=== PATIENT | male | born 1975 | race African-American/Black ===

== ENCOUNTER 2019-11-24 16:14 | Outpatient (CLI) | payer OTHER, SELFPAY ==
--- NOTE | ~2019-11-24 | XR_ITS ---
EXAMINATION: XR chest 2V DATE: 11/24/2019 16:43 INDICATION: Congestive heart failure TECHNIQUE: PA and lateral views of the chest are obtained. COMPARISON: 08/03/2017 FINDINGS: The lungs are free of acute opacities. There is no pleural effusion or pneumothorax. Cardio megaly is noted. The visualized bones and soft tissues are unremarkable. IMPRESSION: 1. Cardiomegaly Reviewed, dictated and finalized at location A. IMPRESSION: 1. Cardiomegaly
--- NOTE | ~2019-11-24 | CT_ITS ---
EXAMINATION: CT abdomen pelvis wo con DATE: 11/24/2019 17:06 INDICATION: Abdominal distention TECHNIQUE: Computed tomography (CT) of the abdomen and pelvis was performed without intravenous contr ast. The dose-length product (DLP) was 1081.49 mGy-cm. Automated exposure control and iterative recon struction technique were employed. COMPARISON: None FINDINGS: Cardiomegaly is noted. There is mild atelectasis of the visualized lung bases. There is a m oderate volume of ascites. Diffuse anasarca is noted. Within the limitations of noncontrast examinati on, the liver, spleen, pancreas, gallbladder, and adrenal glands are normal. The kidneys are unremark able. There is no free intraperitoneal gas or evidence of bowel obstruction. Mild right inguinal lymp hadenopathy is noted. IMPRESSION: 1. Moderate volume of ascites and diffuse anasarca. 2. Mild right inguinal lymphadenopathy, likely reactive. 3. Cardiomegaly. Reviewed, dictated and finalized at location A.
== END 2019-11-24 16:15 | disposition home or self-care (01) ==
DX: R14.0 Abdominal distension (gaseous) (principal); I50.9 Heart failure, unspecified; I51.7 Cardiomegaly
CPT/HCPCS: 71046; 74176

== ENCOUNTER 2019-12-08 10:25 | Outpatient (CLI) | payer OTHER, SELFPAY ==
--- NOTE | ~2019-12-08 | US_ITS ---
EXAMINATION: US venous doppler [facility] DATE: 12/08/2019 11:16 INDICATION: Bilateral lower limb swelling TECHNIQUE: [place]ona scale images without and with compression and Doppler images of the bilateral lower e xtremity veins were obtained. COMPARISON: 11/06/2017 FINDINGS: The right common femoral vein, profunda femoral vein, femoral vein, popliteal vein, peroneal trunk, p osterior tibial veins, and greater saphenous vein are patent. The left common femoral vein, profunda femoral vein, femoral vein, popliteal vein, peroneal trunk, po sterior tibial veins, and greater saphenous vein are patent. IMPRESSION: 1. Patent bilateral lower extremity veins. No evidence of deep venous thrombosis. Reviewed, dictated and finalized at location A. IMPRESSION: 1. Patent bilateral lower extremity veins. No evidence of deep venous thrombosi s.
== END 2019-12-08 10:26 | disposition home or self-care (01) ==
PROVIDERS: PCP Internal Medicine; Visit Provider Internal Medicine
DX: R60.0 Localized edema (principal)
CPT/HCPCS: 93970

== ENCOUNTER 2024-01-25 14:58 | Observation (INO) | payer OTHER, SELFPAY ==
[2024-01-25] VITALS (11 sets, daily range): BP systolic 151–183; BP diastolic 110–140; PULSE 92–98; RESP 16–21; TEMP 36.3–36.7; O2SAT 95–100; BMI 28.8
--- NOTE | ~2024-01-25 | XR_ITS ---
EXAMINATION: XR chest 2V Exam Date/Time: 01/25/2024 16:58 CDT HISTORY: SOB Comparison: 11/24/2019. RESULT: Lines, tubes, and devices: None. Lungs and pleura: Clear. Cardiomediastinal silhouette: Stable cardiomegaly. Other: No acute osseous or upper abdominal finding. IMPRESSION: No acute cardiopulmonary process. Reviewed, dictated and finalized at location K.
--- NOTE | ~2024-01-25 | CT_ITS ---
EXAMINATION: CT abdomen pelvis w con DATE: 01/25/2024 17:11 INDICATION: right sided abdominal pain TECHNIQUE: Computed tomography (CT) of the abdomen and pelvis was performed with 100 mL Omnipaque-350 intravenous contrast. Automated exposure control and iterative reconstruction technique were employe d. The dose-length product was 435.03 mGy-cm. COMPARISON: 11/24/2019. FINDINGS: Although timed for a portal venous scan, the study remains in the arterial phase likely due to poor c ardiac output. Lower thorax: Cardiomegaly. Small right pleural effusion. Minimal dependent scar/atelectasis. Liver: Enlarged. Fatty infiltrated. Biliary/Gallbladder: Gallbladder wall thickening. No bile duct dilation. Pancreas: No mass or duct dilation. Spleen: Normal. Adrenals:No mass. Kidneys: No suspicious mass, obstructing stone, or hydronephrosis. GI tract: No small or large bowel dilation. Normal appendix. Mesentery/Peritoneum: No ascites, mass, or free air. Diffuse mesenteric edema. Mild perihepatic and p erisplenic fluid. Retroperitoneum: No mass. Pelvis: Urinary bladder wall thickening and adjacent stranding. Soft Tissues: Moderate bilateral inguinal lymphadenopathy. Diffuse body wall edema. Bones: No acute osseous finding. IMPRESSION: Cardiomegaly with decreased cardiac output. Small right pleural effusion. Hepatomegaly with steatosis. Nonspecific gallbladder wall thickening, probably secondary to generalized edema, correlate with bili lindsey labs and symptoms of right upper quadrant pain. Moderate diffuse subcutaneous and mesenteric edema. Small volume ascites. Urinary bladder wall thickening, probably secondary to generalized edema, correlate with urinalysis. Bilateral inguinal lymphadenopathy. Reviewed, dictated and finalized at location K. IMPRESSION: Cardiomegaly with decreased cardiac output. Small right pleural effusion. Hepatomegaly with steatosis. Nonspecific gallbladder wall thickening, probably secondary to generalized mata a, correlate with biliary labs and symptoms of right upper quadrant pain. Moderate diffuse subcutaneous and mesenteric edema. Small volume ascites. Urinary bladder wall thickening, probably secondary to generalized edema, corre late with urinalysis. Bilateral inguinal lymphadenopathy.
--- NOTE | ~2024-01-25 | US_ITS ---
EXAMINATION: US renal BI DATE: 01/25/2024 20:17 INDICATION: Renal failure, proteinuria TECHNIQUE: Multiple grayscale and Doppler ultrasound images of the kidneys were obtained. COMPARISON: CT abdomen pelvis, same date. FINDINGS: The right kidney measures 11.0 x 5.5 x 5.8 cm. The left kidney measures 11.3 x 5.0 x 5.0 cm. The kidn eys demonstrate bilateral cortical thinning with normal parenchymal echogenicity. Small volume ascite s. There is no hydronephrosis. The bladder is normal. IMPRESSION: Bilateral renal cortical thinning, otherwise unremarkable renal sonogram findings. Mild ascites. Reviewed, dictated and finalized at location K. IMPRESSION: Bilateral renal cortical thinning, otherwise unremarkable renal sonogram findin gs. Mild ascites.
--- NOTE | ~2024-01-25 | US_ITS ---
EXAMINATION: US venous doppler [facility] DATE: 01/25/2024 20:17 INDICATION: Bilateral lower extremity edema . TECHNIQUE: Grayscale images without and with compression and Doppler images of the bilateral lower ex tremity veins were obtained. COMPARISON: 12/08/2019 FINDINGS: The right common femoral vein, profunda (deep) femoral vein, femoral vein, popliteal vein, peroneal v ein, posterior tibial veins, and greater saphenous vein are patent. The left common femoral vein, profunda (deep) femoral vein, femoral vein, popliteal vein, peroneal v ein, posterior tibial veins, and greater saphenous vein are patent. IMPRESSION: Patent bilateral lower extremity veins. No evidence of deep venous thrombosis. Reviewed, dictated and finalized at location K.
--- NOTE | 2024-01-25 15:56 | ECG_ITS ---
Test Date: 2024-01-25 16:33:36 Measurements Intervals [place] Rate: 94 P: 64 ME: 180 QRS: -35 QRSD: 108 T: 79 QT: 378 QTc: 475 Interpretive Statements SINUS RHYTHM LEFT AXIS DEVIATION INCOMPLETE LEFT BUNDLE BRANCH BLOCK CONSIDER INFERIOR INFARCT, AGE INDETERMINATE BORDERLINE ST-T WAVE ABNORMALITY- HIGH LATERAL LEADS BASELINE ARTIFACT- I, II, AVR ABNORMAL ECG No previous ECG available for comparison Electronically Signed On 01-26-2024 07:18:54 CDT by Tomas Hawley D.O.
[2024-01-25 16:27] LABS: Basophils Absolute Auto 0.1 K/mm3 (0.0-0.1); Eosinophils Absolute Auto 0.1 K/mm3 (0-0.3); Eosinophils Percent Auto 0.7 % (0-4.4); Hematocrit 48.6 % (42.0-52.0); Hemoglobin 16.3 g/dL (14.0-18.0); Immature Granulocyte Absolute 0.01 K/mm3 (0.00-0.031); Immature Granulocyte Percent A 0.1 % (0-0.5); Lymphocytes Absolute Auto 1.49 K/mm3 (0.9-3.2); Lymphocytes Percent Auto 21.3 % (18.3-44.2); Mean Corpuscular HGB Conc 33.5 g/dl (32-36); Mean Corpuscular Hemoglobin 31.7 pg (26-34); Mean Corpuscular Volume 94.4 fl (80-100); Monocytes Absolute Auto 0.7 K/mm3 (0.1-0.6); Monocytes Percent Auto 10.6 % (2.6-8.5); Neutrophils Absolute Auto 4.7 K/mm3 (1.3-6.7); Neutrophils Percent Auto 66.3 % (45.5-73.1); Platelet Count Result 234 k/mm3 (150-375); Red Blood Count 5.15 M/mm3 (4.6-6.20); Red Cell Distribution Width 14.6 % (11.5-14.5)
[2024-01-25 16:40] LABS: Alanine Aminotransferase 13 U/L (6-50); Albumin Level 3.8 g/dL (3.5-5.1); Alkaline Phosphatase 177 U/L (38-126); Anion Gap 13 mmol/L (4-12); Aspartate Amino Transferase 31 U/L (17-59); Bilirubin,Total 3.1 mg/dL (0.2-1.3); Blood Urea Nitrogen 27 mg/dL (9-20); Carbon Dioxide 20 mmol/L (22-30); Chloride 99 mmol/L (98-107); Estimated CRCL calculation 57 ml/min; Estimated Glomerular Filt Rate > 60; Glucose 248 mg/dL (65-110); Potassium 4.4 mmol/L (3.4-5.0); Sodium 132 mmol/L (137-145)
[2024-01-25 16:47] LABS: NT Pro B Type Natriuretic Pept 20500 pg/mL (19.9-100)
--- NOTE | 2024-01-25 17:08 | ED.SOB ---
HPI - SOB/Dyspnea General Chief Complaint: Abdominal Pain Stated Complaint: bilateral leg swelling, SOB Time Seen by Provider: 01/25/24 15:56 Source: patient Mode of arrival: ambulatory Limitations: no limitations History of Present Illness HPI Narrative: This is a 48 year old male that presents to the ER for edema. Worsening over the last couple of weeks. Reports shortness of breath, abdominal swelling, lower extremity edema. Reports he does not feel like his Lasix and Spironolactone are helping. Reports a cough. Reports right sided abdominal pain. Reports a 30 lb weight gain in the last couple of weeks. Denies fever, vomiting, diarrhea, or dysuria. Related Data Allergies Allergy/AdvReac Type Severity Reaction Status Date / Time No Known Allergies Allergy Unverified 01/25/24 14:58 Review of Systems Review of Systems: CONSTITUTIONAL: Denies fever CARDIOVASCULAR: Reports chest pain, and edema. RESPIRATORY: Reports cough and dyspnea. GASTROINTESTINAL: Reports abdominal pain. Denies nausea, vomiting, or diarrhea. GENITOURINARY: Denies dysuria All systems reviewed & are unremarkable except as noted in HPI and below PMFSH Past Medical History Medical History (Updated 01/25/24 @ 18:11 by Kavita Arizmendi PA-C) History of diabetes mellitus History of hyperlipidemia History of hypertension Exam Narrative: GENERAL: Well-appearing, well-nourished, and in no acute distress. HEAD: Normocephalic, atraumatic. EYES: EOMI. NECK: Supple. No JVD CHEST: Clear to auscultation. No respiratory distress. No wheezes rales or rhonchi HEART: Regular rate and rhythm. No murmur heard. Normal peripheral pulses. ABDOMEN: Soft, nondistended, normal active bowel sounds. Tender to palpation throughout the right side of the abdomen, without guarding EXTREMITIES: Normal range of motion. 2+ pitting edema to the bilateral lower extremities. Normal DP pulses SKIN: Warm, dry, no rash. NEURO: No focal deficits. Alert and oriented x3. PSYCH: Normal mood and affect Course Course Emergency Course: Patient updated on his workup and recommendation for admission Consultations Consultation #1: Spoke with hospitalist about patient and workup who accepts admission Date: 01/25/24 Consultation #2: Spoke with cardiology who will consult Date: 01/25/24 Vital Signs Vital signs: Vital Signs Temperature 97.9 F 01/25/24 15:00 Pulse Rate 95 01/25/24 15:00 Respiratory Rate 16 01/25/24 15:00 Blood Pressure 170/118 H 01/25/24 15:00 Pulse Oximetry 100 01/25/24 15:00 Oxygen Delivery Room Air 01/25/24 15:00 Temperature 97.9 F 01/25/24 15:00 Pulse Rate 95 01/25/24 15:00 Respiratory Rate 16 01/25/24 15:00 Blood Pressure 170/118 H 01/25/24 15:00 Pulse Oximetry 100 01/25/24 15:00 Oxygen Delivery Room Air 01/25/24 15:00 MDM - SOB/Dyspnea MDM Narrative Medical decision making narrative: Patient presents to the emergency department for worsening edema, shortness of breath, abdominal pain. Ongoing over the last several weeks. History of nonischemic cardiomyopathy. Takes Lasix and spironolactone. Reports he does not feel they are helping. Oxygen saturation is 100% on room air. Cbc without leukocytosis. Metabolic panel with creatinine of 1.4. Bicarb of 20, anion gap of 13. BUN 27. Total bili 3.1. AST and ALT are normal. EKG without acute ST changes. Baseline troponin is negative. Chest x-ray without acute findings. CT abdomen and pelvis shows cardiomegaly, small right pleural effusion. Moderate diffuse subcutaneous and mesenteric edema. Small volume ascites. Nonspecific gallbladder findings likely due to generalized edema. He does not seem to be particularly tender in the right upper quadrant. Patient updated on his workup and recommendation for admission. Spoke with hospitalist about patient and workup who accepts admission. Spoke with cardiology who will consult Differential Diagnosis Differential d
[2024-01-25 17:46] LABS: Troponin I < 0.012 ng/mL (0.000-0.034)
[2024-01-25 18:11] LABS: Lipase 87 U/L (23-300)
[2024-01-25] MEDS: FUROSEMIDE INJ 40 MG/4 ML VIAL IV PUSH (18:21)
[2024-01-25 18:40] LABS: Appearance Urine Clear (Clear); Bacteria Urine None Seen /hpf; Bilirubin Urine 1+ (Negative); Blood Urine 2+ (Negative); Color Urine Dark Yellow (Yellow); Glucose Urine UA 1+ mg/dL (Negative); Ketones Urine Negative (Negative); Leukocyte Esterase Ur Negative LEU/UL (Negative); Need Manual Microscopic Reviewed; Nitrate Urine Negative (Negative); Non Pathogenic Casts >20; Protein Urine 4+ mg/dL (Negative); Specific Grav Ur > 1.045 (1.001-1.035); Squamous Epithelial Cell Urine None Seen /hpf (Few); WBC Urine 0-5 /hpf (0-3); pH Urine 5.5 (5.0-9.0)
[2024-01-25 18:41] LABS: Add Urine Microscopic? YES
--- NOTE | 2024-01-25 19:03 | PM.IMHP ---
H&P: HPI History of Present Illness Date/Time: 01/25/24 20:30 Chief Complaint: Swelling, shortness of breath, and weight gain. Narrative: This is a pleasant 48-year-old male with combined systolic and diastolic congestive heart failure, nonischemic cardiomyopathy, hypertension, hyperlipidemia, obstructive sleep apnea, and type 2 diabetes mellitus who presented to the emergency department for evaluation of swelling, shortness of breath, and weight gain. The patient provides the following history. Over the last several weeks he has noticed ever increasing lower extremity edema which is now extending into the abdomen, progressive dyspnea on exertion, and a 30 lb weight gain. He states compliance with his furosemide and spironolactone but admits to missing his evening medications often. He has not noticed a decrease in urine output. He has no known history of liver disease. He also denies chest and pleuritic pain, palpitations, sensations of racing heart, cough, orthopnea, paroxysmal nocturnal dyspnea, and calf pain. In the ED: He was afebrile on arrival. Blood pressures have been as high as 183/140. Labs are significant for a WBC count of 7.0, BUN 27, creatinine 1.40, glucose 248, total bilirubin 3.1, troponin less than 0.012, proBNP 15233, total protein 7.0, albumin 3.8. Urine was positive for 4+ protein, 1+ glucose, 2+ blood, 1+ bilirubin, and [address] of the abdomen and pelvis showed cardiomegaly with evidence of decreased cardiac output, small right pleural effusion, hepatomegaly with steatosis, nonspecific gallbladder wall thickening, small volume ascites, diffuse subcutaneous and mesenteric edema, and urinary bladder wall thickening. Chest x-ray showed no acute cardiopulmonary disease. He was given furosemide 40 mg IV and he is being admitted in this setting for further treatment and evaluation. Review of Systems Review of Systems: 12 systems were reviewed and are negative except for as per HPI. [facility] Past Medical History Medical History (Updated 01/25/24 @ 19:13 by Nadeen Crain PA-C) Combined systolic and diastolic congestive heart failure EF as low as 25% in 2017. Hyperlipidemia Hypertension Nonischemic cardiomyopathy Obstructive sleep apnea Type 2 diabetes mellitus (2002) Surgical History Surgical History (Updated 01/25/24 @ 19:05 by Nadeen Crain PA-C) History of inguinal hernia repair Family History Family History Other Heart disease Social History Social History (Updated 01/25/24 @ 22:45 by Nadeen Crain PA-C) Social History: Surrogate medical decision maker: Marie Guaman, friend. Code status: Full code. Smoking status: Never smoker Smokeless tobacco user: chewing tobacco Alcohol intake: former Alcohol use details: Was drinking 3 shots a night for couple of years but has curbed that recently. 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 Spiritual care concerns: No Meds Home Medications and Allergies Home Medications Medication Instructions Recorded Confirmed Type carvedilol 25 mg tablet 25 mg PO BID 01/25/24 01/25/24 History ergocalciferol (vitamin D2) 1,250 1,250 mcg PO DAILY 01/25/24 01/25/24 History mcg (50,000 unit) capsule furosemide 40 mg tablet 40 mg PO BID 01/25/24 01/25/24 History ivabradine 5 mg tablet (Corlanor) 5 mg PO DAILY 01/25/24 01/25/24 History nifedipine 90 mg tablet,extended 90 mg PO DAILY 01/25/24 01/25/24 History release 24 hr rosuvastatin 20 mg tablet 20 mg PO DAILY 01/09
--- NOTE | 2024-01-25 20:10 | ADMGEN ---
This patient, [place], was admitted to IMU Room 203-01 at 2009. Patient/family oriented to hospital policies and general routines including ID bracelet, bed and alarms, visiting hours, pain management, procedures, bathroom and other care routines, personal items, smoking policy, room service/diet, and visiting hours. Information on how to activate the Rapid Response Team has been discussed. Patient/Family are encouraged to report perceived risks to care and to ask questions if they do not understand what they are told or what they should do.
[2024-01-25 20:58] LABS: Total Protein Urine Random > 600 mg/dL
[2024-01-25 21:42] LABS: Glucose Point of Care 171 mg/dl (65-105)
[2024-01-25] MEDS: BUMETANIDE INJ 1 MG/4 ML VIAL IV PUSH (23:29)
[2024-01-26] VITALS (17 sets, daily range): BP systolic 92–139; BP diastolic 65–87; PULSE 69–96; RESP 16–20; TEMP 36.2–36.4; O2SAT 96–100
[2024-01-26 04:28] LABS: Basophils Absolute Auto 0.1 K/mm3 (0.0-0.1); Eosinophils Absolute Auto 0.1 K/mm3 (0-0.3); Eosinophils Percent Auto 1.2 % (0-4.4); Hemoglobin 15.6 g/dL (14.0-18.0); Immature Granulocyte Absolute 0.02 K/mm3 (0.00-0.031); Immature Granulocyte Percent A 0.2 % (0-0.5); Lymphocytes Absolute Auto 1.51 K/mm3 (0.9-3.2); Lymphocytes Percent Auto 18.3 % (18.3-44.2); Mean Corpuscular HGB Conc 33.2 g/dl (32-36); Mean Corpuscular Hemoglobin 31.3 pg (26-34); Mean Corpuscular Volume 94.2 fl (80-100); Mean Platelet Volume 11.1 fl (7.4-10.4); Monocytes Absolute Auto 0.8 K/mm3 (0.1-0.6); Monocytes Percent Auto 9.4 % (2.6-8.5); Neutrophils Absolute Auto 5.8 K/mm3 (1.3-6.7); Neutrophils Percent Auto 69.9 % (45.5-73.1); Platelet Count Result 269 k/mm3 (150-375); Red Blood Count 4.99 M/mm3 (4.6-6.20); Red Cell Distribution Width 14.3 % (11.5-14.5); White Blood Count 8.3 K/mm3 (4.5-10.0)
[2024-01-26 04:36] LABS: Alanine Aminotransferase 11 U/L (6-50); Albumin Level 3.7 g/dL (3.5-5.1); Alkaline Phosphatase 163 U/L (38-126); Anion Gap 10 mmol/L (4-12); Aspartate Amino Transferase 24 U/L (17-59); Bilirubin,Total 2.8 mg/dL (0.2-1.3); Blood Urea Nitrogen 25 mg/dL (9-20); Calcium 9.1 mg/dL (8.4-10.2); Carbon Dioxide 28 mmol/L (22-30); Chloride 97 mmol/L (98-107); Estimated CRCL calculation 57 ml/min; Estimated Glomerular Filt Rate > 60; Glucose 158 mg/dL (65-110); Magnesium 1.7 mg/dL (1.6-2.3); Potassium 3.7 mmol/L (3.4-5.0); Sodium 135 mmol/L (137-145)
[2024-01-26 04:47] LABS: Hemoglobin A1C 8.6 % (<5.7)
[2024-01-26 06:49] LABS: Glucose Point of Care 165 mg/dl (65-105)
[2024-01-26] MEDS: SACUBITRIL/VALSARTAN 97-103 MG TABLET 1 TAB PO ×2 (09:09→20:21)
[2024-01-26] MEDS: ROSUVASTATIN 20 MG TABLET PO (09:09)
[2024-01-26] MEDS: ENOXAPARIN 40 MG/0.4 ML SYRINGE SUB-Q (09:09)
[2024-01-26] MEDS: carvediloL 25 MG TABLET PO ×2 (09:09→20:21)
[2024-01-26] MEDS: NIFEdipine 30 MG TAB.ER.24 90 MG PO (09:09)
[2024-01-26] MEDS: SPIRONOLACTONE 25 MG TABLET PO (09:10)
--- NOTE | 2024-01-26 09:16 | PM.CNCAR ---
Assessment and Plan Assessment and plan (1) Acute on chronic heart failure with reduced ejection fraction (HFrEF, <= 40%) and combined systolic and diastolic dysfunction: Code(s): I50.43 - Acute on chronic combined systolic (congestive) and diastolic (congestive) heart failure Status: Acute Assessment and Plan: Will do IV diuresis with Bumex IV 1mg BID. Please monitor strict I/Os. Continue Coreg 25mg BID. Continue Entresto 97/103mg BID. Continue Spironolactone 25mg once daily. Will start Jardiance 10mg once daily. Echocardiogram ordered and pending. (2) Coronary artery disease: Code(s): I25.10 - Atherosclerotic heart disease of [place] coronary artery without angina pectoris Status: Acute Assessment and Plan: Will start ASA 81mg once daily. Continue Rosuvastatin 20mg once daily. Check lipid panel. (3) Hypertension: Code(s): I10 - Essential (primary) hypertension Status: Acute Assessment and Plan: Continue Coreg 25mg BID. Continue Entresto 97/103mg BID. Continue Spironolactone 25mg once daily. Continue Nifedipine 90mg once daily. (4) Hyperlipidemia: Code(s): E78.5 - Hyperlipidemia, unspecified Status: Acute Assessment and Plan: Continue Rosuvastatin 20mg once daily. Check lipid panel. (5) Type 2 diabetes mellitus: Onset Date: 2002 Code(s): E11.9 - Type 2 diabetes mellitus without complications Status: Acute Assessment and Plan: Uncontrolled. Management as per primary team. (6) Renal failure: Code(s): N19 - Unspecified kidney failure Status: Acute Assessment and Plan: Has an CRISTI, likely due to CHF. Baseline renal function is not known. Nephrology has been consulted as well. Plan Recommendations and plan discussed with Hospitalist. History of Present Illness History of Present Illness Consult date/time: 01/26/24 09:16 Requesting physician: Nadeen Crain PA-C Consult reason: congestive heart failure Reason For Visit: Nico Narrative: We are consulted for CHF. This is a 48 year old male with heart failure with reduced LVEF, nonischemic cardiomyopathy, coronary artery disease, hypertension, hyperlipidemia, type 2 diabetes mellitus, obstructive sleep apnea. 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 Marquez with [facility]. Patient presented with orthopnea, exertional dyspnea, abdominal distension, and lower extremity edema that has been occurring for the past month. Has had a 30lb weight gain. Does not think that his Lasix has been working at home anywhere. Cardiac catheterization in August 2016 showed angiographically modest coronary artery disease. Only significant lesion appears to be an 80% stenosis in the midportion of the small diagonal branch. LVEF noted to be 25% on LV angiogram. NT pro BNP is 20,500. CT A/P shows cardiomegaly with decreased cardiac output, small right pleural effusion, hepatomegaly with steatosis, nonspecific gallbladder wall thickening, moderate diffuse subcutaneous and mesenteric edema, small volume ascites, urinary bladder wall thickening, bilateral inguinal lymphadenopathy. EKG with sinus rhythm, ILBBB, nonspecific STTW abnormality. Review of Systems Review of Systems: All systems reviewed & are unremarkable except as noted in HPI and below (HPI) [facility] Past Medical History Medical History (Updated 01/26/24 @ 09:24 by Yu Light MD) Combined systolic and diastolic congestive heart failure EF as low as 25% in 2017. Hyperlipidemia Hypertension Nonischemic cardiomyopathy Obstructive sleep apnea Type 2 diabetes mellitus (2002) Surgical History Surgical History History of inguinal hernia repair Family History Family History Other Heart disease Social History Social History
[2024-01-26 09:32] LABS: Cholesterol 126 mg/dL (0-200); HDL Direct 43 mg/dL; Triglycerides 102 mg/dL (<150)
[2024-01-26 09:43] LABS: LDL Cholesterol Direct 70 mg/dL
[2024-01-26] MEDS: ASPIRIN 81 MG ENTERIC TABLET PO (10:11)
[2024-01-26] MEDS: BUMETANIDE INJ 1 MG/4 ML VIAL IV PUSH ×2 (10:11→17:41)
[2024-01-26] MEDS: EMPAGLIFLOZIN 10 MG TABLET PO (10:11)
[2024-01-26] MEDS: INSULIN ASPART (*BKC) 100 UNITS/ML SUB-Q (11:36)
[2024-01-26 11:53] LABS: Glucose Point of Care 219 mg/dl (65-105)
[2024-01-26 16:46] LABS: Glucose Point of Care 129 mg/dl (65-105)
--- NOTE | 2024-01-26 18:25 | PM.IMPN ---
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 Ambulates independently. Denies energy drinks, he chews tobacco, reports marijuana smoking once in a while. Years he drank 3-4 shots every night of fireball and since February of 2024 as cut back to only on the weekends. He also was not taking his medications just because he forgot. Education provided on all of the aforementioned. Continue diuresis Full code. Etiology consultation appreciated Subjective Date/time seen: 01/26/24 18:25 Interval history: No major acute overnight events. Patient does not complain of shortness of breath but feels he is still retaining water weight. Review of Systems Review of Systems: All systems reviewed & are unremarkable except as noted in HPI and below (Subjective) Exam Const: General: comfortable and no acute distress Eyes: Pupils: Equal, round and reactive pupils present Neck: Neck: supple Resp: Effort & Inspection: normal respiratory effort Auscultation: clear to auscultation bilaterally Cardio: Rate: regular rate Rhythm: regular rhythm GI: GI Palp: Yes Soft to palpation and No Tenderness to palpation present (GI) Extrem: General: no edema Objective Data Vital Signs Vital Signs: Vital Signs - 24 hr 01/25/24 18:53 01/25/24 19:15 01/25/24 20:36 Temperature 97.8 F Pulse Rate 98 98 Respiratory Rate 16 16 Blood Pressure 183/137 H 164/122 H Pulse Oximetry 99 95 Oxygen Delivery Room Air 01/25/24 20:16 01/25/24 20:00 01/25/24 22:00 Temperature 97.3 F L Pulse Rate 98 94 92 Respiratory Rate 20 Blood Pressure 151/110 H Pulse Oximetry 100 Oxygen Delivery 01/25/24 23:42 01/26/24 00:00 01/26/24 00:00 Temperature 97.6 F Pulse Rate 94 96 Respiratory Rate 18 Blood Pressure 170/115 H Pulse Oximetry 96 Oxygen Delivery Room Air 01/26/24 02:00 01/26/24 03:34 01/26/24 03:49 Temperature 97.2 F L Pulse Rate 85 90 90 Respiratory Rate 20 Blood Pressure 139/87 Pulse Oximetry 100 100 Oxygen Delivery Autopap 01/26/24 04:00 01/26/24 04:00 01/26/24 08:00 Temperature 97.5 F L Pulse Rate 92 90 Respiratory Rate 18 Blood Pressure 125/85 Pulse Oximetry 96 Oxygen Delivery Autopap 01/26/24 09:09 01/26/24 08:00 01/26/24 08:00 Temperature Pulse Rate 92 93 Respiratory Rate Blood Pressure Pulse Oximetry Oxygen Delivery Room Air 01/26/24 10:00 01/26/24 12:00 01/26/24 16:00 Temperature 97.2 F L 97.3 F L Pulse Rate 91 70 73 Respiratory Rate 16 16 Blood Pressure 108/75 92/65 L Pulse Oximetry 100 98 Oxygen Delivery Intake/Output Intake/Output: Intake & Output 01/23/24 01/24/24 01/25/24 01/26/24 23:59 23:59 23:59 23:59 Intake Total 1030 Output Total 900 Balance 130 Meds/Results Medications: Active Medications Generic Name Dose Route Start Last Admin Trade Name Freq PRN Reason Stop Dose Admin Acetaminophen 650 mg 01/25/24 19:13 Acetaminophen 325 Mg Tablet PO Q6H PRN Mild Pain (1-3) or Fever Aspirin 81 mg 01/26/24 09:20 01/26/24 10:11 Aspirin 81 Mg Enteric Tablet PO 81 mg QAM JA Administration Bumetanide 1 mg 01/26/24 09:15 01/26/24 17:41 Bumetanide Inj 1 Mg/4 Ml Vial IV PUSH 1 mg BID JA Administration Carvedilol 25 mg 01/25/24 22:45 01/26/24 09:09 Carvedilol 25 Mg Tablet PO 25 mg Q12HR JA Administration Dextrose 12.5 gm 01/25/24 19:13 Dextrose 50% 25 Gm/50 Ml Syringe I
--- NOTE | 2024-01-26 18:29 | PM.CNNEP ---
Assessment and Plan Assessment and plan (1) Renal insufficiency: Code(s): N28.9 - Disorder of kidney and ureter, unspecified Status: Acute Assessment and Plan: suspect some baseline renal disease due to HTN, DM, vascular disease, cardiomyopathy, and CLYDE renal ultrasound consistent with CKD check urine studies and serological profile follow trend of repeat labs and UOP (2) Proteinuria: Code(s): R80.9 - Proteinuria, unspecified Status: Acute Assessment and Plan: suggested by admission UA playing a role with anasarca/volume overload quantitate proteinuria follow-up on serological testing (3) Acute on chronic heart failure with reduced ejection fraction (HFrEF, <= 40%) and combined systolic and diastolic dysfunction: Code(s): I50.43 - Acute on chronic combined systolic (congestive) and diastolic (congestive) heart failure Status: Acute Assessment and Plan: clinical improvement with diuresis Cardiology following repeat Echo noted on coreg, entresto, spironolactone with recently added jardiance (4) Hypertension: Code(s): I10 - Essential (primary) hypertension Status: Acute Assessment and Plan: poor control at baseline better control currently (due to better compliance?) follow trend of hemodynamics (5) Type 2 diabetes mellitus: Onset Date: 2002 Code(s): E11.9 - Type 2 diabetes mellitus without complications Status: Acute Assessment and Plan: follow accu-cheks glycemic control per hospitalists I will continue to follow the patient with you while remains hospitalized to make further recommendations as deemed necessary. Thank you for allowing me to participate in the care of this patient. History of Present Illness Reason for Consult Consult date: 01/26/24 Reason for consult: chronic renal failure and proteinuria Chief Complaint Chief complaint: Anasarca History of Present Illness Narrative: The patient is a 48-year-old male with a past medical history as outlined below who presented to [facility] Emergency room with complaints of worsening shortness of breath as well as swelling/edema. the patient stated over the last several weeks he has noticed increasing lower extremity edema which has progressively worsened and has extended into his abdomen. Associated with this increase in edema has been worsening shortness of breath, 1st with exertion and now at rest along with a 30 lb weight gain. He states he is compliant with his diuretic regimen and but admits to missing his medications, more so in the evening than morning. He denies any chest pain, palpitations, dizziness, lightheadedness, orthopnea, PND, or syncope. Given his worsening shortness of breath and swelling, he came to the emergency room for further assessment. Workup and evaluation in the emergency room demonstrated the patient to be hemodynamically stable although he was hypertensive with a systolic BP in the 180s. Routine blood tests were significant for a normal CBC and a chemistry with a elevated BUN creatinine of 27 and 1.4 respectively. His proBNP was greater than 20,000 and his urinalysis was significant for 4+ protein, 1+ glucose, 2+ blood, 11-[address] scan of his abdomen pelvis showed cardiomegaly with evidence of decreased cardiac output, small right pleural effusion, hepatomegaly with steatosis, and none specific all below her wall thickening with a small volume ascites and diffuse subcutaneous / mesenteric edema. His chest x-ray showed no cardiopulmonary disease. He received IV diuretics in the emergency room and subsequently was admitted to the hospital for anasarca/volume overload. Since his admission, he clinically feels better with IV diuresis but still is not feel that he is back to his baseline with regard to his breathing and edema. Renal consultation was requested due to his chronic renal in
--- NOTE | 2024-01-26 19:14 | ECHO_ITS ---
Patient Info Name: Garo Whitten Young Age: 48 years : 1975 Gender: Male Ht: 68 in Wt: 165 lbs BSA: 1.90 m2 HR: 92 bpm BP: 139 / 87 mmHg Heart Rhythm: Sinus Rhythm Technical Quality: Good Exam Date: 01/26/2024 10:29 AM Exam Location: Echo Lab Patient Status: Outpatient Admit Date: 01/25/2024 Staff Ordering Physician: Nadeen Crain PA-C Cross Tie Maker: Kiki Grimm RDCS Attending Provider: Herman Zimmer MD Referring Physician: Breann DAVIS; Exam Type: CA echo doppler color flow Study Info Indications - CHF, CARDIOMYOPATHY, ANASARCA Complete two-dimensional, color flow and Doppler transthoracic echocardiogram is performed. Summary 1. Left ventricular chamber dimension is normal. 2. Left ventricular systolic function is severely reduced, estimated at 20-25%. 3. There is mildly increased left ventricular wall thickness. 4. The left ventricular diastolic function is grade III diastolic dysfunction. 5. Right ventricular systolic function is normal. 6. Left atrial chamber dimension is moderately enlarged. 7. Right atrial chamber dimension is moderately enlarged. 8. There is mild mitral valve regurgitation. 9. There is mild tricuspid valve regurgitation. 10. Dilated inferior vena cava with <50% collapse upon inspiration consistent with elevated right atrial pressure, 15 mmHg. Left Ventricle Left ventricular chamber dimension is normal. Left ventricular systolic function is severely reduced, estimated at 20-25%. There is mildly increased left ventricular wall thickness. The left ventricular diastolic function is grade III diastolic dysfunction. Right Ventricle Right ventricular chamber dimension is normal. Right ventricular systolic function is normal. Left Atria Left atrial chamber dimension is moderately enlarged. Right Atria Right atrial chamber dimension is moderately enlarged. Atrial Septum Intact interatrial septum visualized by color flow imaging. Aortic Valve The aortic valve is trileaflet. There is mild aortic valve sclerosis. There is no aortic valve stenosis. There is no aortic valve regurgitation. Pulmonic Valve The pulmonic valve is not well visualized. There is trace pulmonic regurgitation. Mitral Valve The mitral valve has normal leaflets. There is mild mitral valve regurgitation. Tricuspid Valve There is mild tricuspid valve regurgitation. Pericardium/Pleural There is no pericardial effusion. Inferior Vena Cava Dilated inferior vena cava with <50% collapse upon inspiration consistent with elevated right atrial pressure, 15 mmHg. Aorta The aortic root size at the sinus of Valsalva is normal. Left Ventricular Outflow Tract Name Value Normal LVOT 2D LVOT Diameter 2.4 cm LVOT Doppler LVOT Peak Gradient 1 mmHg LVOT Mean Gradient 1 mmHg LVOT VTI 10 cm LVOT VTI/AV VTI Ratio 0.6 LVOT Stroke Volume 46 ml LVOT CO 3.4 l/min LVOT CI 1.8 l/min/m2 Pulmonic Valve N
[2024-01-26 22:32] LABS: Glucose Point of Care 164 mg/dl (65-105)
[2024-01-27] VITALS (8 sets, daily range): BP systolic 104–112; BP diastolic 69–72; PULSE 61–76; RESP 16–19; TEMP 36.1–36.5; O2SAT 98–100
[2024-01-27 05:00] LABS: Hematocrit 45.3 % (42.0-52.0); Hemoglobin 15.3 g/dL (14.0-18.0); Mean Corpuscular HGB Conc 33.8 g/dl (32-36); Mean Corpuscular Hemoglobin 31.6 pg (26-34); Mean Corpuscular Volume 93.6 fl (80-100); Mean Platelet Volume 11.3 fl (7.4-10.4); Platelet Count Result 279 k/mm3 (150-375); Red Blood Count 4.84 M/mm3 (4.6-6.20); White Blood Count 8.1 K/mm3 (4.5-10.0)
[2024-01-27 05:37] LABS: Anion Gap 11 mmol/L (4-12); Blood Urea Nitrogen 26 mg/dL (9-20); Carbon Dioxide 28 mmol/L (22-30); Chloride 94 mmol/L (98-107); Estimated CRCL calculation 50 ml/min; Estimated Glomerular Filt Rate 56; Glucose 118 mg/dL (65-110); Magnesium 1.6 mg/dL (1.6-2.3); Potassium 3.4 mmol/L (3.4-5.0); Sodium 133 mmol/L (137-145)
[2024-01-27 05:42] LABS: Complement C3 102 mg/dL (88-165)
[2024-01-27 06:56] LABS: Glucose Point of Care 107 mg/dl (65-105)
[2024-01-27] MEDS: carvediloL 25 MG TABLET PO (09:18)
[2024-01-27] MEDS: ASPIRIN 81 MG ENTERIC TABLET PO (09:18)
[2024-01-27] MEDS: SACUBITRIL/VALSARTAN 97-103 MG TABLET 1 TAB PO (09:18)
[2024-01-27] MEDS: NIFEdipine 30 MG TAB.ER.24 90 MG PO (09:18)
[2024-01-27] MEDS: ENOXAPARIN 40 MG/0.4 ML SYRINGE SUB-Q (09:18)
[2024-01-27] MEDS: ROSUVASTATIN 20 MG TABLET PO (09:18)
[2024-01-27] MEDS: SPIRONOLACTONE 25 MG TABLET PO (09:18)
[2024-01-27] MEDS: EMPAGLIFLOZIN 10 MG TABLET PO (09:18)
[2024-01-27] MEDS: BUMETANIDE INJ 1 MG/4 ML VIAL IV PUSH (09:19)
[2024-01-27 10:02] LABS: Total Protein Urine Random 59 mg/dL; Ur Ttl Prot Creatinine Ratio 1.48 mg/mg (0-0.20)
--- NOTE | 2024-01-27 10:37 | PM.PNCARD ---
Progress Note: A&P Assessment and Plan (1) Acute on chronic heart failure with reduced ejection fraction (HFrEF, <= 40%) and combined systolic and diastolic dysfunction: Code(s): I50.43 - Acute on chronic combined systolic (congestive) and diastolic (congestive) heart failure Status: Acute Assessment and Plan: Will shift IV Bumex to PO Bumex. Continue Coreg 25mg BID. Continue Entresto 97/103mg BID. Continue Spironolactone 25mg once daily. Started Jardiance 10mg once daily. Echocardiogram this admission shows LVEF 20-25%, grade III diastolic dysfunction, moderate biatrial enlargement, mild MR, mild TR. Patient states Dr. Marquez offered ICD in the past, but he declined. He will follow up with Dr. Marquez as an outpatient. Okay to discharge home today from our standpoint. (2) Coronary artery disease: Code(s): I25.10 - Atherosclerotic heart disease of [place] coronary artery without angina pectoris Status: Acute Assessment and Plan: Started ASA 81mg once daily. Continue Rosuvastatin 20mg once daily. (3) Hypertension: Code(s): I10 - Essential (primary) hypertension Status: Acute Assessment and Plan: Continue Coreg 25mg BID. Continue Entresto 97/103mg BID. Continue Spironolactone 25mg once daily. Continue Nifedipine 90mg once daily. (4) Hyperlipidemia: Code(s): E78.5 - Hyperlipidemia, unspecified Status: Acute Assessment and Plan: Continue Rosuvastatin 20mg once daily. (5) Type 2 diabetes mellitus: Onset Date: 2002 Code(s): E11.9 - Type 2 diabetes mellitus without complications Status: Acute Assessment and Plan: Uncontrolled. Management as per primary team. (6) Renal failure: Code(s): N19 - Unspecified kidney failure Status: Acute Assessment and Plan: Baseline renal function is not known. Nephrology has been consulted as well. Plan Recommendations and plan discussed with Hospitalist. Subjective Date/time seen: 01/27/24 10:37 Interval history: Reason for visit: Acute on chronic CHF HPI: We are consulted for CHF. This is a 48 year old male with heart failure with reduced LVEF, nonischemic cardiomyopathy, coronary artery disease, hypertension, hyperlipidemia, type 2 diabetes mellitus, obstructive sleep apnea. Patient's primary wedding coordinator is Dr. Marquez with [facility]. Patient presented with orthopnea, exertional dyspnea, abdominal distension, and lower extremity edema that has been occurring for the past month. Has had a 30lb weight gain. Does not think that his Lasix has been working at home anywhere. Cardiac catheterization in August 2016 showed angiographically modest coronary artery disease. Only significant lesion appears to be an 80% stenosis in the midportion of the small diagonal branch. LVEF noted to be 25% on LV angiogram. NT pro BNP is 20,500. CT A/P shows cardiomegaly with decreased cardiac output, small right pleural effusion, hepatomegaly with steatosis, nonspecific gallbladder wall thickening, moderate diffuse subcutaneous and mesenteric edema, small volume ascites, urinary bladder wall thickening, bilateral inguinal lymphadenopathy. EKG with sinus rhythm, ILBBB, nonspecific STTW abnormality. Date of service 01/26: Feeling better this morning. No longer having shortness of breath or orthopnea. Lower extremity edema has significantly improved. Review of Systems Review of Systems: All systems reviewed & are unremarkable except as noted in HPI and below (HPI) Exam Const: General: comfortable and no acute distress HENMT: Mouth: Yes moist mucous membranes Eyes: General: appearance normal, both eyes and all related structures Sclera: sclerae normal Resp: Effort & Inspection: normal respiratory effort Cardio: Rate: regular rate Rhythm: regular rhythm Other: Trace edema in right lower extremity Skin: General skin exam: normal color Neuro:
--- NOTE | 2024-01-27 11:14 | PM.DS ---
DS: Admitting Diagnosis Discharge Date January 27, 2024 Admitting Diagnosis Shortness of breath DS: Discharge Diagnosis Discharge Diagnosis (1) Coronary artery disease: Code(s): I25.10 - Atherosclerotic heart disease of [place] coronary artery without angina pectoris Status: Acute (2) Acute on chronic heart failure with reduced ejection fraction (HFrEF, <= 40%) and combined systolic and diastolic dysfunction: Code(s): I50.43 - Acute on chronic combined systolic (congestive) and diastolic (congestive) heart failure Status: Acute (3) Renal failure: Code(s): N19 - Unspecified kidney failure Status: Acute (4) Medical non-compliance: Code(s): Z91.199 - Patient's noncompliance with other medical treatment and regimen due to unspecified reason Status: Acute DS: Summary Hospital Course Hospital Course: This is a very pleasant 48-year-old male PMH heart failure reduced ejection fraction, nonischemic cardiomyopathy, CAD, hypertension, hyperlipidemia, [id number]-pxnbbsokr type 2 diabetes mellitus, CLYDE, chewing tobacco, marijuana abuse, alcohol use disorder. Patient follows with Dr. Marquez at [facility] and has been told he had an EF as low as 10-15% in the past. He presents with abdominal distention, lower extremity edema, orthopnea, exertional dyspnea, 30 lb weight gain past month. Patient eats fast food often and does not restrict his salt intake. He has not been taking his medications reporting he simply has forgotten. Cardiac catheterization in 08/2016 showed angiographically minus coronary artery disease, 80% stenosis in the midportion the small diagonal branch. ER evaluation demonstrated a male shortly slight of breath with proBNP [id number]. CT a/P demonstrated cardiomegaly with decreased cardiac output, small right pleural effusion, hepatomegaly with steatosis, nonspecific gallbladder wall thickening, moderate diffuse subcutaneous and mesenteric edema, small volume ascites, urinary bladder wall thickening, bilateral inguinal lymphadenopathy. Patient admitted on 01/25/2024 for acute decompensated heart failure. 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 b.i.d., he was placed on Bumex 1 mg IV b.i.d. and his symptomatology improved as a whole improved. Patient was heavily educated on the importance of medical compliance. He has also been educated on polysubstance abuse. Care coordinators consulted to provide resources. The patient is enthusiastic to abstain from alcohol. He also has evidence of hepatomegaly and is to follow with PCP on that. Educated on the end-organ damage possibly due to alcohol use such as cardiomyopathy, disease, hepatomegaly. He also agrees to take his medications and follow-up with his director drug safety as well. He declined ICD or further eval regarding ICDs, for now. His bowel edema and gallbladder wall thickening likely due to generalized edema. Advised to follow his PCP on this matter. He presented with serum creatinine 1.40. 1.6 on discharge. He is seen by Dr. Sanchez and is provide information follow-up in 3-4 weeks. Repeat TTE on 01/26/2024 demonstrates: 1. Left ventricular chamber dimension is normal. 2. Left ventricular systolic function is severely reduced, estimated at 20-25%. 3. There is mildly increased left ventricular wall thickness. 4. The left ventricular diastolic function is grade III diastolic dysfunction. 5. Right ventricular systolic function is normal. 6. Left atrial chamber dimension is moderately enlarged. 7. Right atrial chamber dimension is moderately enlarged. 8. There is mild mitral valve regurgitation. 9. There is mild tricuspid valve regurgitation. 10. Dilated inferior vena cava with <50% collapse upon inspiration consistent with elevated right atrial pressure, 15 mmHg. As for GDMT for HF and CAD he is to continue aspirin, statin, Coreg, spironolactone. Lasix has been discontinued, sta
[2024-01-27 12:26] LABS: Glucose Point of Care 252 mg/dl (65-105)
[2024-01-28 10:18] LABS: Protein, Total 5.5 g/dL (6.1-8.1)
[2024-01-28 15:03] LABS: Albumin 2.9 g/dL (3.8-4.8); Alpha 1 Globulin 0.3 g/dL (0.2-0.3); Alpha 2 Globulin 0.7 g/dL (0.5-0.9); Beta 1 Globulin 0.4 g/dL (0.4-0.6); Gamma Globulin 0.9 g/dL (0.8-1.7)
[2024-01-29 14:58] LABS: Creatinine, Random Urine 39 mg/dL (20-320); Total Protein/Creatinine Ratio 1077 mg/g creat (25-148)
[2024-01-31 13:03] LABS: Kappa\\Lambda Light Chains 1.36 (0.26-1.65); Lambda Light Chain 28.8 mg/L (5.7-26.3)
[2024-01-31 15:08] LABS: Anti Glomerular Basement Memb <1.0 AI
[2024-02-01 14:37] LABS: ANCA Screen NEGATIVE (NEGATIVE)
[2024-02-01 20:19] LABS: Immunofixation, Serum Normal pattern.
[2024-02-03 10:33] LABS: Anti Nuclear Antibody Pattern Nuclear, Speckled; Anti Nuclear Antibody Titer 1:40 titer
== END 2024-01-27 12:25 | disposition home or self-care (01) ==
LOC: ANHED 18:11 → ANHIMU 19:54
PROVIDERS: Internal Medicine; Internal Medicine Nephrology; Physician Assistant; Admitting Provider Internal Medicine; Emergency Provider Physician Assistant; PCP Internal Medicine; Visit Provider General Practice
DX: I11.0 Hypertensive heart disease with heart failure (principal); I50.43 Acute on chronic combined systolic (congestive) and diastolic (congestive) heart failure; N19 Unspecified kidney failure; R80.9 Proteinuria, unspecified; R60.1 Generalized edema; R06.02 Shortness of breath; E78.5 Hyperlipidemia, unspecified; E11.9 Type 2 diabetes mellitus without complications; I25.10 Atherosclerotic heart disease of native coronary artery without angina pectoris; I42.8 Other cardiomyopathies; I08.1 Rheumatic disorders of both mitral and tricuspid valves; G47.33 Obstructive sleep apnea (adult) (pediatric); F17.220 Nicotine dependence, chewing tobacco, uncomplicated; Z79.85 Long-term (current) use of injectable non-insulin antidiabetic drugs; Z91.199 Patient's noncompliance with other medical treatment and regimen due to unspecified reason
CPT/HCPCS: 36415; 71046; 74177; 76775; 80048; 80053; 80061; 81001; 81050; 82570; 82948; 83036; 83520; 83690; 83735; 83880; 83883; 84155; 84156; 84165; 84166; 84443; 84484; 85025; 85027; 86036; 86038; 86039; 86160; 86225; 86334; 86335; 93005; 93306; 93970; 96372; 96374; 96375; 96376; 99285; A9270; G0378; J1650; J1815; J1939; J1940; Q9967

== ENCOUNTER 2024-10-12 10:18 | Outpatient (CLI) | payer OTHER, SELFPAY ==
--- NOTE | ~2024-10-12 | US_ITS ---
US right upper quadrant INDICATION: Abnormal results of liver function test PROCEDURE: Realtime right upper abdominal ultrasound. COMPARISON: 01/25/2024 FINDINGS: The pancreas is normal without focal mass or pancreatic ductal dilation. Liver echotexture is normal without focal mass or intrahepatic biliary dilatation. There is normal directional flow i n the portal vein. The gallbladder is normal without stones, gallbladder wall thickening or pericholecystic fluid. Comm on bile duct measures 4 mm. No sonographic Michelle's sign. IMPRESSION: 1: Normal limited abdominal ultrasound. Reviewed, dictated and finalized at location A.
--- NOTE | ~2024-10-12 | CT_ITS ---
Non-contrast CT scan of the Abdomen and Pelvis Clinical indication: Abdominal pain Technique: 2.5 mm axial scans were obtained through the abdomen and pelvis without intravenous or or al contrast. Dose reduction technique was used on this scan by utilizing automated exposure control a nd iterative reconstruction technique. The dose-length product (DLP) was 345.72 mGy-cm. COMPARISON: 01/25/2024 Findings: Images through the lung bases reveal possible minimal interstitial edema. There is no evidence of renal or ureteral calculi. The kidneys and the ureters are nondilated. The liver, spleen, pancreas, gallbladder, and adrenals appear normal. There is no aortic aneurysm. There is no evidence of bowel obstruction. There is probable wall thickening of the rectum. Images through the pelvis were performed. There is no evidence of ascites or lymphadenopathy. Possibl e mild diffuse urinary bladder wall thickening. Prostate gland is enlarged. Impression: Probable wall thickening of the rectum. Correlate for infectious/inflammatory process, or possibly ne oplasm. Questionable cystitis. Reviewed, dictated and finalized at location . Impression: Probable wall thickening of the rectum. Correlate for infectious/inflammatory p rocess, or possibly neoplasm. Questionable cystitis.
== END 2024-10-12 10:19 | disposition home or self-care (01) ==
PROVIDERS: PCP Internal Medicine; Visit Provider Internal Medicine
DX: R94.5 Abnormal results of liver function studies (principal); R10.9 Unspecified abdominal pain
CPT/HCPCS: 74176; 76705